=== PATIENT | female | born 1955 | race Caucasian/White ===

== ENCOUNTER → 2016-12-31 15:18 | Outpatient (CLI) | payer MEDICARE ==
[2012-08-25 09:05] VITALS: BMI 34.4
== END | disposition home or self-care (01) ==
LOC: D.CT 13:00
DX: R07.9 Chest pain, unspecified (principal)

== ENCOUNTER → 2017-05-16 13:03 | Outpatient (CLI) | payer MEDICARE ==
[2012-08-25 09:05] VITALS: BMI 34.4
== END | disposition home or self-care (01) ==
LOC: D.MRI 05-15 13:00
DX: M25.561 Pain in right knee (principal)

== ENCOUNTER 2017-07-22 11:37 | Day surgery (SDC) | payer MEDICARE ==
--- NOTE | ~2017-07-22 | OP ---
PATIENT NAME: MILAD BECKETT MEDICAL RECORD: [id number] :59 LOCATION:D[facility]OPS ADMISSION DATE: SURGEON: BOWEN LEON DO DATE OF OPERATION: 07/22/2017 PROCEDURES PERFORMED: Right knee arthroscopy with partial medial and partial lateral meniscectomies and patellar chondroplasty. PREOPERATIVE DIAGNOSES: Right knee medial meniscal tear and chondromalacia. 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 INDICATIONS: Ms. Milad Beckett is a 61-year-old female who has had right knee pain for quite sometime. She has had catching, popping, locking, giving way, and painful movement of it. She had an MRI done which showed medial meniscal tear; chondromalacia on the medial side of the knee; and some chondromalacia of other 2 parts of the knee, in lateral and patellofemoral joints. There was a conversation we had with her explaining that, due to the amount of arthritis she had in her knee already, we would try to trim out the meniscus due to her describing the symptoms of being meniscal more than arthritic and popping, catching, locking, and giving way. We would try to reduce those symptoms by trimming out meniscus and getting it trimmed back to a stable point, but we could not promise we can take all of her knee pain away due to the fact that she had previous standing arthritis in that knee. She is agreeable to this and understood those problems. She also was aware that she is on chronic pain medicine and that her pain would not be well controlled after surgery due to the fact she has built up tolerance to narcotics. SURGEON: Bowen Leon DO. COMPLICATIONS: None. BLOOD LOSS: Minimal. DESCRIPTION OF PROCEDURE: After the patient was taken to the operative suite, given general anesthetic, and LMA was placed, the right lower extremity was prepped and draped in sterile fashion. A time-out was performed and everyone was in agreement with correct site, side, and patient. The patient was given Ancef preoperatively with a test dose. She did not have reaction due to her PENICILLIN ALLERGY. The procedure was then commenced with the knee flexed. The lateral portal was established first with an 11 blade scalpel and trocar was entered into the knee and the suprapatellar pouch. The chondromalacia of the patella was seen at that time. The lateral gutter was then inspected. No loose bodies were seen. The suprapatellar pouch was inspected as well, no loose bodies there. In the medial gutter, no loose bodies. The knee was then flexed and the medial side was entered, noting the grade III chondromalacia of the femur and the tibia. The medial portal was then established with an 18 gauge needle and an 11 blade scalpel. The meniscal tear was in the posterior horn of the medial meniscus. The tear was removed and chewed back to a stable point with a biter and then the Torpedo shaver. Once this was back to a stable position, some of the cartilage was flaking off the medial femoral condyle. Abrasion chondroplasty was done to them as well. The ACL was then probed and seemed to be taut and not loose. The probe was then parked in the OPERATIVE REPORT [id number] MILAD BECKETT posterolateral aspect of the knee, in the notch. The knee was in [id number] and the lateral compartment was entered, seeing a meniscal tear in the lateral meniscus, just in the middle third, at the very peripheral inside edge of it. The shaver was used to trim out those loose pieces of lateral meniscus. Once that was done, the knee was then brought back into extension and the chondromalacia of the patella was debrided and chondroplasty was done to it, removing all the loose pieces of cartilage. The suction was turned on, the water was turned off, and excess fluid was removed out of the knee at that time. The portal sites were closed, after everything was removed, with 4-0 Monocryl in inverted interrupted fashion. Steri-Strips were placed over them. Adaptic, 4 x 4, ABD, Webril, and Hans wrap were placed on the knee. BRYAN hose stocking was placed up to the knee. The patient was then awakened and taken to recovery in stable condition. TRANSINT:[id number] Voice Confirmation ID: [id number] DOCUMENT ID: [id number] BOWEN LEON DO at [id number] CC: [id number] DICTATION DATE: 07/22/17 3917 CONFERENCE SERVICE COORDINATOR: 07/22/17 1601 [facility] 07/22/17 [facility] [address] [place] [address]
[2017-07-22] MEDS ORDERED: LISINOPRIL10 MG PO (12:05)
[2017-07-22] MEDS ORDERED: CYMBALTA60 MG PO (12:05)
[2017-07-22] MEDS ORDERED: PHENERGAN25 M1 PO (12:06)
[2017-07-22] MEDS ORDERED: OMEPRAZOLE DR 20 MG PO (12:07)
[2017-07-22] MEDS ORDERED: VALIUM10 MG PO (12:07)
[2017-07-22] MEDS ORDERED: OXYCONTIN15 MG PO (12:08)
[2017-07-22] MEDS ORDERED: PEPCID AC20 MG PO (12:09)
[2017-07-22 12:20] VITALS: BP 133/56; BMI 34.9
[2017-07-22 12:28] LABS: HEMATOCRIT 32.2 % (36.0-48.0); HEMOGLOBIN 9.7 g/dL (12-16); MCH 24.4 pg (26.0-34.0); MCHC 30.1 g/dL (31.0-37.0); MCV 80.9 fL (80.0-100.0); MEAN PLATELET VOLUME 10.8 fL (7.4-10.4); RBC 3.98 10x6/uL (4.00-5.40); RDW 17.2 % (11.5-14.5)
[2017-07-22] MEDS ORDERED: PERCOCET 10/3251 TA1 PO (14:12)
== END 2017-07-22 17:00 | disposition home or self-care (01) ==
LOC: D.OPS 11:37 → D.PAN 13:00 → D.OPS 13:00
PROVIDERS: Anesthesiology
DX: S83.241A Other tear of medial meniscus, current injury, right knee, initial encounter (principal); S83.281A Other tear of lateral meniscus, current injury, right knee, initial encounter; M22.41 Chondromalacia patellae, right knee; Z01.812 Encounter for preprocedural laboratory examination; X58.XXXA Exposure to other specified factors, initial encounter